=== PATIENT | female | born 2000 | race Caucasian/White ===

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

== ENCOUNTER 2022-11-08 10:01 | Inpatient (IN) | payer SELFPAY ==
[2022-11-08] MEDS: Lactated Ringers 1,000 ML IV SCH ×2 (11:40→14:20)
[2022-11-08] MEDS ORDERED: Oxytocin/Normal Saline 30 UNIT/500 ML BAG IV SCH ×2 (11:45→12:00)
[2022-11-08] MEDS ORDERED: Lactated Ringers 1,000 ML IV SCH (11:45)
[2022-11-08] MEDS ORDERED: Sodium Chloride 0.9% 10 ML Syringe FLUSH PRN ×2 (11:48→16:46)
[2022-11-08] MEDS ORDERED: Methylergonovine 0.2 MG/1 ML Amp IM PRN (11:48)
[2022-11-08] MEDS ORDERED: Carboprost Tromethamine 250 MCG/1 ML Amp IM PRN (11:48)
[2022-11-08] MEDS ORDERED: Lidocaine 1% 30 ML SDV INJECT PRN (11:48)
[2022-11-08] MEDS ORDERED: Acetaminophen 325 MG Tab PO PRN ×2 (11:48)
[2022-11-08] MEDS ORDERED: Misoprostol 400 MCG (4 X 100 MCG TAB) RECTAL PRN (11:48)
[2022-11-08] MEDS ORDERED: Lactated Ringers 1,000 ML IV ONE (11:48)
[2022-11-08] MEDS ORDERED: Tranexamic Acid 1,000 MG in Sodium Chloride 0.9% 100 ML IV PRN (11:48)
[2022-11-08] MEDS ORDERED: Ondansetron 4 MG/2 ML SDV IVPUSH PRN (11:48)
[2022-11-08 11:50] LABS: HEMATOCRIT 36.9 % (37.0-47.0); HEMOGLOBIN 11.8 g/dL (12.0-16.0); MEAN CORPUSCULAR HEMOGLOBIN 27.5 pg (27.0-34.0); RED BLOOD CELL COUNT 4.29 10^6/uL (4.2-5.4); WHITE BLOOD CELL COUNT,WBC 9.1 10^3/uL (5.0-10.0)
[2022-11-08] MEDS: Oxytocin/Normal Saline 30 UNIT/500 ML BAG IV SCH ×2 (12:05→17:28)
[2022-11-08] MEDS ORDERED: ePHEDrine 50 MG/ML SDV IVPUSH PRN (14:43)
[2022-11-08] MEDS ORDERED: Phenylephrine HCl In 0.9% NaCl 1 MG/10 ML Syringe IVPUSH PRN (14:43)
[2022-11-08] MEDS ORDERED: Ropivacaine 200 MG in Premix Bag 1 BAG EPIDUR SCH (14:45)
[2022-11-08] MEDS ORDERED: Benzocaine/Menthol 20%-0.5% Spray 78 GM Cannister TOP PRN (16:46)
[2022-11-08] MEDS ORDERED: Zolpidem 5 MG Tab PO PRN (16:46)
[2022-11-08] MEDS ORDERED: Oxytocin 10 Units/1 ML SDV IM PRN (16:46)
[2022-11-08] MEDS ORDERED: Simethicone 80 MG Tab.Chew PO PRN (16:46)
[2022-11-08] MEDS ORDERED: Docusate Sodium 100 MG Cap PO PRN (16:46)
[2022-11-08] MEDS ORDERED: Sodium Chloride 0.9% 10 ML Syringe FLUSH SCH (21:00)
[2022-11-09] MEDS: Ibuprofen 800 MG Tab PO PRN ×2 (01:07→09:14)
[2022-11-09 06:31] LABS: HEMATOCRIT 33.4 % (37.0-47.0); HEMOGLOBIN 10.5 g/dL (12.0-16.0); MEAN CORPUSCULAR HEMOGLOBIN 27.3 pg (27.0-34.0); MEAN CORPUSCULAR HGB CONC 31.4 g/dL (33.0-35.0); MEAN CORPUSCULAR VOLUME 86.8 fL (80-100); RED BLOOD CELL COUNT 3.85 10^6/uL (4.2-5.4); WHITE BLOOD CELL COUNT,WBC 8.1 10^3/uL (5.0-10.0)
[2022-11-09] MEDS ORDERED: Prenatal Multivitamin with Calcium/Folic Acid/Iron Tab PO SCH (09:00)
[2022-11-09] MEDS ORDERED: Ropivacaine 0.2% 2 MG/ML 100 ML Infusion Bottle EPIDUR ONE (17:59)
== END 2022-11-09 18:00 | disposition home or self-care (01) | DRG 807 ==
LOC: DL.OBCHECK 10:01 → UNDOADMIN 11:28 → DL.OB 11:28 → UNDODISIN 11-09 18:00
PROVIDERS: ADMIT Family Medicine; ATTEND Family Medicine
PROC: 10E0XZZ Delivery of Products of Conception, External Approach (ICD-10-PCS; principal; 2022-11-08)
PROC: 3E0R3BZ Introduction of Anesthetic Agent into Spinal Canal, Percutaneous Approach (ICD-10-PCS; 2022-11-08)
PROC: 00HU33Z Insertion of Infusion Device into Spinal Canal, Percutaneous Approach (ICD-10-PCS; 2022-11-08)
DX: O42.92 Full-term premature rupture of membranes, unspecified as to length of time between rupture and onset of labor (principal); Z37.0 Single live birth; Z3A.39 39 weeks gestation of pregnancy; O62.2 Other uterine inertia
CPT/HCPCS: 01960; 36415; 59409; 84112; 85027; A9270-GY; J2210; J2405; J2590; J2795; J3490; J7120